=== PATIENT | male | born 1940 ===

== ENCOUNTER 2022-12-06 09:04 | Outpatient (CLI) | payer MEDICARE | END 2022-12-06 09:05 | disposition home or self-care (01) | LOC: CSHWCC 09:04 | PROVIDERS: ATTEND Nurse Practitioner Family | DX: S51.802D Unspecified open wound of left forearm, subsequent encounter (principal) | CPT/HCPCS: 97139; 97597; G0463; 99203 ==

== ENCOUNTER 2022-12-20 08:49 | Outpatient (CLI) | payer MEDICARE | END 2022-12-20 08:50 | disposition home or self-care (01) | LOC: CSHWCC 08:49 | PROVIDERS: ATTEND Nurse Practitioner Family | DX: S51.802D Unspecified open wound of left forearm, subsequent encounter (principal) | CPT/HCPCS: 97597 ==